=== PATIENT | male | born 1995 | race African-American/Black ===

== ENCOUNTER 2020-09-20 20:15 | Emergency (ER) | payer OTHER ==
[2020-09-20] MEDS ORDERED: HYDROcodone/Acetaminophen 5/325 mg Tablet ONE (20:53)
[2020-09-20] MEDS ORDERED: Ibuprofen 800 MG TAB ONE (20:53)
== END 2020-09-20 21:05 ==
LOC: NAV ERS 20:15
DX: S60.221A Contusion of right hand, initial encounter (principal); W23.0XXA Caught, crushed, jammed, or pinched between moving objects, initial encounter